=== PATIENT | male | born 2000 | race Caucasian/White ===

== ENCOUNTER 2024-08-05 10:15 | Emergency (ER) | payer OTHER, SELFPAY ==
[2024-08-05] VITALS (13 sets, daily range): BP systolic 110–139; BP diastolic 56–82; PULSE 80–92; RESP 14; TEMP 36.9; O2SAT 94–97; BMI 45.0
--- NOTE | 2024-08-05 11:37 | DI.CT.S_ITS ---
PROCEDURE: CT HEAD/BRAIN WO CON INDICATIONS: fall/syncope 08/03, new Right symptoms TECHNIQUE: Noncontrast 4.5 mm thick angled axial sections acquired from the foramen magnum to the vertex, with coronal and sagittal reformats. For radiation dose reduction, the following was used: automated exposure control, adjustment of mA and/or kV according to patient size. COMPARISON: None. FINDINGS: Image quality: Diagnostic. CSF spaces: Basal cisterns are patent. No extra-axial fluid collections. Ventricles are normal in size and shape. Brain: No midline shift. No intracranial masses or hemorrhage. Rice-white matter interface is normal. Skull and face: Calvarium and visualized facial bones are intact, without suspicious lesions. Sinuses: Visualized sinuses and mastoids are clear. IMPRESSION: No acute intracranial pathology. Dictated by: Sandip Dale M.D. on 08/05/2024 at 12:24 Approved by: Sandip Dale M.D. on 08/05/2024 at 12:26
[2024-08-05] MEDS: SODIUM CHLORIDE 0.9% 1,000 ML 1000 ML IV ×2 (11:47→13:21)
[2024-08-05 12:07] LABS: Add Manual Diff / Slide Review NO; Basophils Absolute Auto 100 /uL (0-100); Basophils Percent Auto 0.9 % (0-2); Eosinophils Absolute Auto 200 /uL (0-450); Eosinophils Percent Auto 1.5 % (2-4); Hematocrit 47.2 % (41-53); Hemoglobin 15.6 g/dL (13.5-17.5); Lymphocytes Absolute Auto 3000 /uL (1100-4500); Lymphocytes Percent Auto 28.9 % (25-40); Mean Corpuscular Hemoglobin 28.3 PG (26-34); Mean Corpuscular Volume 85.7 fL (80-100); Monocytes Absolute Auto 800 /uL (0-900); Monocytes Percent Auto 8.1 % (3-14); Neutrophils Absolute Auto 6200 /uL (1500-7000); Neutrophils Percent Auto 60.6 % (50-75); Platelet Count 67 X10^3/uL (150-400); Red Blood Cell Count 5.51 X10^6/uL (4.5-5.9); Red Cell Distribution Width 13.8 % (11.6-14.8); White Blood Cell Count 10.3 X10^3/uL (4.5-11.0)
[2024-08-05 12:17] LABS: Alanine Aminotransferase 91 IU/L (<50); Albumin 4.3 g/dL (3.5-5.0); Albumin Globulin Ratio 1.3 (1.0-2.8); Alkaline Phosphatase 50 U/L (38-126); Aspartate Aminotransferase 67 IU/L (17-59); BUN Creatinine Ratio 20.8 (6-22); Bilirubin Total 0.9 mg/dL (0.2-1.3); Blood Urea Nitrogen 15 mg/dL (9-20); Calcium 8.8 mg/dL (8.4-10.2); Carbon Dioxide 26 mmol/L (22-32); Chloride 106 mmol/L (98-107); Estimated Glomerular Filt Rate > 60 mL/min (>60); Globulin 3.3 g/dL (1.7-4.1); Glucose 85 mg/dL (70-100); HEMOLYSIS 141 (0-50); Potassium 4.9 mmol/L (3.4-5.1); Sodium 137 mmol/L (137-145); Total Protein 7.6 g/dL (6.3-8.2)
--- NOTE | 2024-08-05 13:08 | ED.GENADULT ---
HPI - General Adult General Chief complaint: Syncope Stated complaint: [facility] Time Seen by Provider: 08/05/24 10:34 Source: patient Mode of arrival: Ambulatory History of Present Illness HPI narrative: 23-year-old young man who was at work on August 03, felt dizzy passed out hit his head fairly significantly with some contusion to the right side of his face. Was evaluated at [facility] lab work was done. He was not felt to have significant enough mechanism to warrant CT scan, seizure was not suspected, it was diagnosed with orthostatic hypotension after having a bowel movement, lab work was reassuring and he was discharged home. He is brought in 3 days later with his girlfriend noting that he is actually getting worse. He is more sleepy, just seems ?off? feels like he is listing to the right side as he is walking, he can not focus or concentrate. He has not complaining of any physical symptoms beyond that currently. No fevers or chills. He notes that he has been on prazosin for PTSD and has not been taking that in the interim. He has continued to take his sertraline Related Data Previous Rx's Medication Instructions Recorded ondansetron 4 mg disintegrating 4 mg PO Q8H PRN nausea and 08/05/24 tablet vomiting #14 tabs Allergies Allergy/AdvReac Type Severity Reaction Status Date / Time No Known Drug Allergies Allergy Verified 08/05/24 10:26 Review of Systems Review of Systems Narrative: Pertinent positive and negative findings as per HPI Patient History Medical History (Updated 08/05/24 @ 14:17 by Lilian Sood MD) Depression PTSD (post-traumatic stress disorder) Social History Smoking Status: Unknown if ever smoked Smoking Status: Unknown if ever smoked alcohol intake frequency: holidays/special occasions only Substance Use Type: does not use Exam Initial Vital Signs Initial Vital Signs: Vital Signs Temperature 98.4 F 08/05/24 10:18 Pulse Rate 90 08/05/24 10:18 Respiratory Rate 14 08/05/24 10:18 Blood Pressure 139/82 08/05/24 10:18 Pulse Oximetry 95 08/05/24 10:18 Oxygen Delivery Method Room Air 08/05/24 10:18 General: Fatigue somewhat cognitively slowed, no acute distress and Able to give a complete and coherent history. Well-nourished well-developed HEENT: Moist mucous membranes, normal sclera with reactive pupils, Neck: No midline cervical spine tenderness Respiratory: Lungs are clear to auscultation, no wheezing no rales no rhonchi. Full and symmetrical air movement Cardiac: Regular rate and rhythm no murmurs no bruits Abdomen: Soft, nontender, good bowel tones, no flank pain Skin: Warm and dry, no rashes Neurologic: Grossly neurologically intact with no obvious asymmetries or abnormalities. On formal testing he has an NIH score of 0 Extremities: No trauma, well perfused Psych: Cooperative, appropriate insight and affect Course Orders Ordered: Discontinued Medications Sodium Chloride (Normal Saline 0.9%) 1,000 mls @ 1,000 mls/hr IV BOLUS ONE Stop: 08/05/24 12:36 Last Infusion: 08/05/24 13:08 Dose: Infused Documented By: Infusion: 08/05/24 12:19 Dose: 1,000 mls/hr Documented By: Infusion: 08/05/24 11:47 Dose: 0 mls/hr Documented By: Admin: 08/05/24 11:47 Dose: 1,000 mls/hr Documented By: JAYESH Sodium Chloride (Normal Saline 0.9%) 1,000 mls @ 1,000 mls/hr IV BOLUS ONE Stop: 08/05/24 14:07 Last Infusion: 08/05/24 14:40 Dose: Infused Documented By: Admin: 08/05/24 13:21 Dose: 1,000 mls/hr Documented By: JAYESH Ondansetron HCl (Ondansetron 4 Mg/2 Ml Inj) 4 mg IV NOW ONE Stop: 08/05/24 13:09 Last Admin: 08/05/24 13:20 Dose: 4 mg Documented By: JAYESH Vital Signs Vital signs: Vital Signs - 8 hr 08/05/24 10:18 08/05/24 10:25 08/05/24 10:30 Temperature 98.4 F Pulse Rate 90 92 H 85 Respiratory Rate 14 Blood Pressure 139/82 Pulse Oximetry 95 96 94 Oxygen Delivery Method Room Air 08/05/24 11:00 08/05/24 11:30 08/05/24 12:00 Temperature Pulse Rate 88 91 H 85 Respiratory Rate Blood Pressure Pulse Oximetry 95 96 96 Oxygen Delivery Method 08/05/24 12:19 08/05/24 12:19 08/05/24 12:30 Temperature Pulse Rate 87 Respiratory Rate Blood Pressure 131/66 126/63 Pulse Oximetry 97 Oxygen Delivery Method 08/05/24 12:30 Temperature Pulse Rate 86 Respiratory Rate Blood Pressure Pulse Oximetry 95 Oxygen Delivery Method Room Air Medical Decision Making Lab Data 08/05/24 11:55 08/05/24 11:55 Labs: Lab Results 08/05/24 Range/Units 11:55 WBC 10.3 (4.5-11.0) X10^3/uL RBC 5.51 (4.5-5.9) X10^6/uL Hgb 15.6 (13.5-17.5) g/dL Hct 47.2 (41-53) % MCV 85.7 (80-100) fL MCH 28.3 (26-34) PG MCHC 33.0 (30-36) % RDW 13.8 (11.6-14.8) % Plt Count 67 L (150-400) X10^3/uL Neut % (Auto) 60.6 (50-75) % Lymph % (Auto) 28.9 (25-40) % [place] % (Auto) 8.1 (3-14) % Eos % (Auto) 1.5 L (2-4) % Baso % (Auto) 0.9 (0-2) % Neut # (Auto) 6200 (6264-6810) /uL Lymph # (Auto) 3000 (2253-2673) /uL [place] # (Auto) 800 (0-900) /uL Eos # (Auto) 200 (0-450) /uL Baso # (Auto) 100 (0-100) /uL Sodium 137 (137-145) mmol/L Potassium 4.9 (3.4-5.1) mmol/L Chloride 106 (98-107) mmol/L Carbon Dioxide 26 (22-32) mmol/L BUN 15 (9-20) mg/dL Creatinine 0.72 (0.66-1.25) mg/dL Estimated GFR > 60 (>60) mL/min BUN/Creatinine Ratio 20.8 (6-22) Glucose 85 (70-100) mg/dL Calcium 8.8 (8.4-10.2) mg/dL Total Bilirubin 0.9 (0.2-1.3) mg/dL AST 67 H (17-59) IU/L ALT 91 H (<50) IU/L Alkaline Phosphatase 50 (38-126) U/L Total Protein 7.6 (6.3-8.2) g/dL Albumin 4.3 (3.5-5.0) g/dL Globulin 3.3 (1.7-4.1) g/dL Albumin/Globulin Ratio 1.3 (1.0-2.8) MDM Narrative Medical decision making narrative: CC: Cognitive dysfunction after head injury 08/03 Complicating co-morbidities: PTSD, he was on prazosin for this has not been taking it recently. Depression Data collected from: patient, girlfriend Social determinants of health that may influence the patients condition: L and I injury Medical records reviewed: Records from [facility] are obtained and reviewed. Differential considered: Subdural, other intracranial abnormalities, postconcussion syndrome Exam documented above, pertinent findings include: Patient is cognitively slowed but still able to participate completely. Thought process is normal if somewhat slowed. NIH score is 0. He is significantly orthostatic. Heart rate goes from 80-90 when he is lying down to 125 as soon as he stands up. Lab Test results independently reviewed as above. Pertinent findings: CBC with no signs of infection or anemia, of note platelets are low at 67 Chemistries show minimally elevated AST and ALT remainder is unremarkable. Patient is aware that he has a diagnosis of fatty liver Imaging studies independently reviewed: CT scan of the brain shows no shift no subdural no epidural with normal ga-white matter interface Consultations: Discussion with Dr. Marquez, neurology. Agrees that this is postconcussion syndrome and MRIs not indicated at this time does recommend outpatient follow up with the primary care physician and may need neurocognitive testing as part of his follow up Treatments: 2 L of fluid and orthostasis symptoms are significantly improved. Zofran Discussion: 23-year-old gentleman with postconcussion syndrome, no evidence of intracranial hemorrhage, orthostatic hypotension unclear etiology. Slightly improved after 2 L of fluid. Extensive discussion regarding postconcussion syndrome. We will recommend at least a week off work we will need to follow up with his primary care physician. Prescription for Zofran to help with the nausea. At this point he does not need additional emergent imaging and is safe for discharge Discharge Plan Departure Patient Disposition: Home Clinical Impression: Post-concussion syndrome, Orthostatic hypotension Instructions: DI for Postconcussion Syndrome Activity Restrictions/Additional Instructions: Thank you for coming in today Your blood work is actually reassuring and the CT scan of your brain does not show any bleeding, masses, tumors or anything that would require emergent neurosurgical intervention. All your symptoms very classic for severe postconcussion syndrome which fits with your head injury from a couple of days ago. Recommendation for this is cognitive rest which means simply staring at nothing. Watching phone screens and TV can actually make things a bit worse. I have given you a prescription for Zofran to help with the general nausea that you often feel. You are given 2 L of fluid today and that is seemed to help a bit with the dizziness. You need to make sure that you are eating and drinking throughout the day. Please do schedule a follow up appointment with your primary care physician to discuss the postconcussion syndrome. The patient with your brain, it will improve but sometimes it takes much longer than you would like Prescriptions: New ondansetron 4 mg tablet,disintegrating 4 mg PO Q8H PRN (Reason: nausea and vomiting) Qty: 14 0RF Stand Alone Forms: Patient Portal/API/Survey, Work Release Note
[2024-08-05] MEDS: ONDANSETRON 4 MG/2 ML INJ IV (13:20)
== END 2024-08-05 14:30 | disposition home or self-care (01) ==
PROVIDERS: Emergency Provider Emergency Medicine
DX: F07.81 Postconcussional syndrome (principal); I95.1 Orthostatic hypotension
CPT/HCPCS: 36415; 70450; 80053; 85025; 96361; 96374; 99284; J2405